=== PATIENT | female | born 1995 | race Caucasian/White ===

== ENCOUNTER 2018-04-11 10:09 | Inpatient (IN) | payer OTHER ==
[~2018-04-11 10:09] MED LIST: OXYTOCIN 30 UNITS/LR 500 ML BAG IV
[2018-04-11] MEDS ORDERED: METHYLERGONOVINE 0.2 MG INJ IM ×2 (10:30→19:00)
[2018-04-11] MEDS ORDERED: CEFAZOLIN 2 GM/50 ML (PMX) 50 ML IV (10:30)
[2018-04-11] MEDS ORDERED: MISOPROSTOL 200 MCG TAB PR ×2 (10:30→19:00)
[2018-04-11] MEDS ORDERED: CARBOPROST 250 MCG INJ IM ×2 (10:30→19:00)
[2018-04-11 10:54] LABS: ADD MAN DIFF? NO
[2018-04-11 11:00] LABS: BASOPHILS % 0.5 % (0.0-2.0); EOSINOPHILS # 0.1 10^3/ul (0.0-0.5); HEMATOCRIT 35.1 % (37.0-47.0); HEMOGLOBIN 11.3 g/dl (12.0-16.0); LYMPHOCYTES # 1.7 10^3/ul (0.8-2.9); LYMPHOCYTES % 28.7 % (15.0-51.0); MEAN CORPUSCULAR HEMOGLOBIN 25.7 pg (29.0-33.0); MEAN CORPUSCULAR HGB CONC 32.2 g/dl (32.0-37.0); MEAN CORPUSCULAR VOLUME 79.8 fl (82.0-101.0); MEAN PLATELET VOLUME 10.7 fl (7.4-10.4); MONOCYTE # 0.4 10^3/ul (0.3-0.9); NEUTROPHIL # 3.6 10^3/ul (1.6-7.5); NEUTROPHILS % 62.3 % (39.0-77.0); PLATELET COUNT 156 10^3/UL (140-415); RED CELL DISTRIBUTION WIDTH 17.8 % (11.5-14.5)
[2018-04-11 11:00] LABS: WHITE BLOOD COUNT 5.8 10^3/ul (4.8-10.8)
[2018-04-11] MEDS: LACTATED RINGER'S 1,000 ML IV (11:00)
[2018-04-11 11:24] LABS: INR 0.99; PARTIAL THROMBOPLASTIN TIME 27.8 Sec (25.0-35.0); PROTIME 13.2 Sec (11.9-14.9)
[2018-04-11 12:15] LABS: HEPATITIS B SURFACE ANTIGEN NEGATIVE (NEGATIVE)
[2018-04-11] MEDS ORDERED: OXYTOCIN 10 UNIT INJ (12:41)
[2018-04-11] MEDS ORDERED: ONDANSETRON 4 MG INJ (12:41)
[2018-04-11] MEDS ORDERED: PHENYLephrine (100 MCG/ML) 5ML SYG (12:41)
[2018-04-11] MEDS ORDERED: BUPIVACAINE 0.75%/DEXT (SPINAL) 2 ML INJ (12:41)
[2018-04-11] MEDS ORDERED: morphine SULFATE/PF (10 MG/10 ML) INJ (12:41)
[2018-04-11] MEDS ORDERED: FENTAnyl 50 MCG/ML VIAL (13:56)
[2018-04-11 15:24] LABS: RAPID PLASMA REAGIN NONREACTIVE (NR)
[2018-04-11] MEDS: OXYTOCIN 30 UNITS/LR 500 ML IV ×4 (15:50→22:31)
[2018-04-11] MEDS ORDERED: PROCHLORPERAZINE 10 MG INJ IV (16:30)
[2018-04-11] MEDS ORDERED: DIPHENHYDRAMINE 50 MG INJ IV ×2 (16:30)
[2018-04-11] MEDS ORDERED: MEPERIDINE 25 MG INJ IV (16:30)
[2018-04-11] MEDS ORDERED: HYDROmorphONE 0.5 MG/0.5 ML SYG IV (16:30)
[2018-04-11] MEDS ORDERED: HYDROmorphONE (0.2 MG/ML) 10ML SYG IV ×3 (16:30)
[2018-04-11] MEDS ORDERED: ONDANSETRON 4 MG INJ IV ×2 (16:30)
[2018-04-11] MEDS ORDERED: NALOXONE (0.4 MG/ML) INJ IV (16:30)
[2018-04-11] MEDS ORDERED: FENTAnyl 50 MCG/ML VIAL IV ×3 (16:30)
[2018-04-11] MEDS ORDERED: OXYTOCIN 30 UNITS/LR 500 ML IV (19:00)
[2018-04-11] MEDS: CEFAZOLIN 1 GM/50 ML (PMX) 50 ML IVPB (22:03)
[2018-04-12] MEDS: OXYTOCIN 30 UNITS/LR 500 ML IV ×6 (02:31→21:38)
[2018-04-12] MEDS: LACTATED RINGER'S 1,000 ML IV (06:09)
[2018-04-12] MEDS: HYDROmorphONE 0.5 MG/0.5 ML SYG IV ×2 (06:14→12:50)
[2018-04-12 09:31] LABS: ADD MAN DIFF? NO
[2018-04-12 09:36] LABS: WHITE BLOOD COUNT 7.4 10^3/ul (4.8-10.8)
[2018-04-12 09:36] LABS: BASOPHILS % 0.3 % (0.0-2.0); EOSINOPHILS % 0.1 % (0.0-7.0); HEMATOCRIT 28.8 % (37.0-47.0); HEMOGLOBIN 9.4 g/dl (12.0-16.0); LYMPHOCYTES # 1.2 10^3/ul (0.8-2.9); LYMPHOCYTES % 16.2 % (15.0-51.0); MEAN CORPUSCULAR HEMOGLOBIN 25.6 pg (29.0-33.0); MEAN CORPUSCULAR HGB CONC 32.6 g/dl (32.0-37.0); MEAN CORPUSCULAR VOLUME 78.5 fl (82.0-101.0); MEAN PLATELET VOLUME 11.2 fl (7.4-10.4); MONOCYTE # 0.5 10^3/ul (0.3-0.9); MONOCYTES % 6.3 % (0.0-11.0); NEUTROPHIL # 5.7 10^3/ul (1.6-7.5); NEUTROPHILS % 76.7 % (39.0-77.0); RED BLOOD COUNT 3.67 10^6/ul (4.20-5.40); RED CELL DISTRIBUTION WIDTH 18.1 % (11.5-14.5)
[2018-04-12 09:46] LABS: PLATELET COUNT 111 10^3/UL (140-415); POSITIVE DIFF @See below
[2018-04-12] MEDS: IBUPROFEN 600 MG TAB PO ×2 (16:01→23:59)
[2018-04-13] MEDS: OXYTOCIN 30 UNITS/LR 500 ML IV ×4 (02:31→19:25)
[2018-04-13] MEDS: IBUPROFEN 600 MG TAB PO ×4 (05:52→23:31)
[2018-04-13] MEDS: OXYCODONE/ACETAMINOPHEN (10/325) TAB PO ×2 (10:19→19:44)
[2018-04-13] MEDS: NA PHOSPHATE/BIPHOS 133 ML ENEMA PR (16:14)
[2018-04-13] MEDS: DIPHENHYDRAMINE 2%/ZINC 28.4 GM CR TOP (18:25)
[2018-04-14] MEDS: IBUPROFEN 600 MG TAB PO ×2 (05:36→12:32)
[2018-04-14] MEDS: OXYCODONE/ACETAMINOPHEN (10/325) TAB PO (09:29)
== END 2018-04-14 14:30 | disposition home or self-care (01) | DRG 766 ==
LOC: L-D 10:09 → PP1 16:38
PROVIDERS: Obstetrics & Gynecology
PROC: 10D00Z1 Extraction of Products of Conception, Low, Open Approach (ICD-10-PCS; principal; 2018-04-11 12:30)
PROC: 0UN90ZZ Release Uterus, Open Approach (ICD-10-PCS; 2018-04-11 12:30)
DX: O34.219 Maternal care for unspecified type scar from previous cesarean delivery (principal); Z3A.39 39 weeks gestation of pregnancy; Z37.0 Single live birth
CPT/HCPCS: 71046; 85025; 85610; 85730; 86592; 86850; 86900; 86901; 87340; 94760; 99464

== ENCOUNTER 2018-04-17 12:27 | Emergency (ER) | payer OTHER ==
[2018-04-17] MEDS ORDERED: SOD CHLORIDE 0.9% 1,000 ML IV (16:00)
[2018-04-17] MEDS: METOCLOPRAMIDE 10 MG INJ IV (16:03)
[2018-04-17] MEDS: morphine 4 MG/ML VIAL IV (16:03)
[2018-04-17] MEDS: SOD CHLORIDE 0.9% 500 ML IV (16:04)
[2018-04-17 16:20] LABS: ADD MAN DIFF? NO
[2018-04-17 16:22] LABS: WHITE BLOOD COUNT 6.6 10^3/ul (4.8-10.8)
[2018-04-17 16:22] LABS: BASOPHILS % 0.5 % (0.0-2.0); EOSINOPHILS # 0.2 10^3/ul (0.0-0.5); EOSINOPHILS % 3.6 % (0.0-7.0); HEMATOCRIT 34.1 % (37.0-47.0); HEMOGLOBIN 10.6 g/dl (12.0-16.0); LYMPHOCYTES # 1.8 10^3/ul (0.8-2.9); LYMPHOCYTES % 27.6 % (15.0-51.0); MEAN CORPUSCULAR HEMOGLOBIN 25.2 pg (29.0-33.0); MEAN CORPUSCULAR HGB CONC 31.1 g/dl (32.0-37.0); MONOCYTE # 0.4 10^3/ul (0.3-0.9); MONOCYTES % 5.5 % (0.0-11.0); NEUTROPHIL # 4.1 10^3/ul (1.6-7.5); NEUTROPHILS % 62.3 % (39.0-77.0); PLATELET COUNT 215 10^3/UL (140-415); RED BLOOD COUNT 4.21 10^6/ul (4.20-5.40); RED CELL DISTRIBUTION WIDTH 17.3 % (11.5-14.5)
[2018-04-17 16:30] LABS: ADD UMIC YES; UR ASCORBIC ACID NEGATIVE (NEGATIVE); UR BILIRUBIN (Dip) NEGATIVE (NEGATIVE); UR BLOOD (Dip) 2+ mg/dL (NEGATIVE); UR CLARITY CLEAR (CLEAR); UR COLOR STRAW (YELLOW); UR GLUCOSE (Dip) NEGATIVE (NEGATIVE); UR KETONES (Dip) NEGATIVE (NEGATIVE); UR LEUKOCYTE ESTERASE (Dip) 1+ Leu/ul (NEGATIVE); UR NITRITE (Dip) NEGATIVE (NEGATIVE); UR RBC 4 /HPF (0-5); UR SPECIFIC GRAVITY (Dip) 1.013 (1.003-1.030); UR TOTAL PROTEIN (Dip) NEGATIVE (NEGATIVE); UR UROBILINOGEN (Dip) NEGATIVE (NEGATIVE); UR WBC 11 /HPF (0-5)
[2018-04-17 16:42] LABS: ALANINE AMINOTRANSFERASE 16 IU/L (13-69); ALBUMIN 3.8 g/dl (3.3-4.9); ALBUMIN/GLOBULIN RATIO 1.05; ALKALINE PHOSPHATASE 118 IU/L (42-121); ANION GAP 15 (8-16); ASPARTATE AMINO TRANSFERASE 15 IU/L (15-46); BILIRUBIN,INDIRECT 0.1 mg/dl (0-1.1); BILIRUBIN,TOTAL 0.1 mg/dl (0.2-1.3); BLOOD UREA NITROGEN 11 mg/dl (7-20); CALCIUM 8.9 mg/dl (8.4-10.2); CARBON DIOXIDE 26 mmol/L (21-31); CHLORIDE 109 mmol/L (97-110); CREATININE 0.62 mg/dl (0.44-1.00); GLUCOSE 89 mg/dl (70-220); POTASSIUM 3.7 mmol/L (3.5-5.1); SODIUM 146 mmol/L (135-144); TOTAL PROTEIN 7.4 g/dl (6.1-8.1)
[2018-04-17 16:52] LABS: INR 0.97
[2018-04-17 16:53] LABS: PARTIAL THROMBOPLASTIN TIME 31.4 Sec (25.0-35.0)
== END 2018-04-17 17:09 | disposition home or self-care (01) ==
LOC: FTE 12:27
DX: O99.89 Other specified diseases and conditions complicating pregnancy, childbirth and the puerperium (principal); O86.20 Urinary tract infection following delivery, unspecified; B96.89 Other specified bacterial agents as the cause of diseases classified elsewhere; R51 Headache
CPT/HCPCS: 80053; 81001; 85025; 85610; 85730; 96374; 96375; 99284-25